=== PATIENT | male | born 1960 | race African-American/Black ===

== ENCOUNTER 2016-12-19 11:59 | Emergency (ER) | payer OTHER ==
[~2016-12-19] VITALS: Ht 177.8 cm; Wt 74.8 kg
[~2016-12-19 11:59] MED LIST: ALBU8.5H4 IH; OXYC-34 PO; PSYL3.4P6 PO; [UNRECOGNIZED DRUG - CODE] PO
[2016-12-19 12:30] VITALS: BP 134/78
[2016-12-19] MEDS ORDERED: HYDROCODONE/APAP 10/325MG 1 EA TABLET PO ONE (13:00)
[2016-12-19] MEDS ORDERED: HYDROCODONE/APAP 10/325MG 1 EA TABLET ONE (13:01)
--- NOTE | 2016-12-19 13:08 | NUR ---
Patient discharged to home in stable condition. Written and verbal after care instructions given but patient threw aftercare and prescription in the garbage. Addendum: 12/19/16 at 1309 by HFO[facility] Patient refused discharge vitals.
== END 2016-12-19 13:11 | disposition home or self-care (01) ==
LOC: ER 11:59
DX: M79.621 Pain in right upper arm (principal); G89.29 Other chronic pain; J45.909 Unspecified asthma, uncomplicated; N28.9 Disorder of kidney and ureter, unspecified; I73.9 Peripheral vascular disease, unspecified; Z88.2 Allergy status to sulfonamides; Z88.1 Allergy status to other antibiotic agents; Z88.6 Allergy status to analgesic agent; Z88.8 Allergy status to other drugs, medicaments and biological substances; Z91.013 Allergy to seafood; F17.200 Nicotine dependence, unspecified, uncomplicated
CPT/HCPCS: A4606; Z7610

== ENCOUNTER 2017-09-05 16:32 | Emergency (ER) | payer OTHER ==
[~2017-09-05] VITALS: Ht 180.3 cm; Wt 83.9 kg
[2017-09-05 16:32] VITALS: BP 136/68
[~2017-09-05 16:32] MED LIST changes: +OXYC-133 PO; -OXYC-34 PO
== END 2017-09-05 16:59 | disposition home or self-care (01) ==
LOC: ER 16:34
DX: G89.29 Other chronic pain (principal); R10.9 Unspecified abdominal pain; J45.909 Unspecified asthma, uncomplicated; I73.9 Peripheral vascular disease, unspecified; F17.200 Nicotine dependence, unspecified, uncomplicated; Z93.3 Colostomy status; Z91.013 Allergy to seafood; Z88.2 Allergy status to sulfonamides; Z88.6 Allergy status to analgesic agent; Z88.5 Allergy status to narcotic agent; Z88.8 Allergy status to other drugs, medicaments and biological substances
CPT/HCPCS: 99281; A4606; Z7610; Z7502

== ENCOUNTER 2021-08-23 09:06 | Emergency (ER) | payer OTHER ==
[~2021-08-23] VITALS: Ht 180.3 cm; Wt 79.4 kg
[2021-08-23 09:23] VITALS: BP 199/99
--- NOTE | 2021-08-23 09:25 | NUR ---
BIBS for c/o lower back pain 04/25 x 1 weeks. Denies any recent injury. Will continue to monitor the patient.
--- NOTE | 2021-08-23 10:08 | NUR ---
Patient discharged to home in stable condition. Written and verbal after care instructions given. Patient verbalizes understanding of instruction.
== END 2021-08-23 10:09 | disposition home or self-care (01) ==
LOC: ER 09:22
DX: M54.50 Low back pain, unspecified (principal); Z76.5 Malingerer [conscious simulation]; J45.909 Unspecified asthma, uncomplicated; I73.9 Peripheral vascular disease, unspecified; F17.200 Nicotine dependence, unspecified, uncomplicated; Z93.3 Colostomy status; Z88.2 Allergy status to sulfonamides; Z88.1 Allergy status to other antibiotic agents; Z88.6 Allergy status to analgesic agent; Z88.5 Allergy status to narcotic agent; Z88.8 Allergy status to other drugs, medicaments and biological substances; Z91.013 Allergy to seafood; Z79.899 Other long term (current) drug therapy

== ENCOUNTER 2023-06-26 20:53 | Emergency (ER) | payer OTHER | END 2023-06-26 22:13 | disposition left against medical advice (07) | LOC: ER 20:56 | DX: Z53.21 Procedure and treatment not carried out due to patient leaving prior to being seen by health care provider (principal) ==